=== PATIENT | female | born 1975 | race Caucasian/White ===

== ENCOUNTER 2021-09-11 06:43 | Day surgery (SDC) | payer OTHER ==
[~2021-09-11] VITALS: Ht 154.9 cm; Wt 103.1 kg
[~2021-09-11 06:43] MED LIST: SODIUM CHLORIDE 0.9% 1,000 ML ONE
[2021-09-11] MEDS ORDERED: BENZOCAINE 20% 50 MCG/SPRAY 57 GM TP ONE (06:44)
[2021-09-11] MEDS ORDERED: LIDOCAINE 2% 30 ML JELLY TP ONE (06:44)
[2021-09-11] MEDS ORDERED: ALBUTEROL SULFATE 2.5 MG/0.5 ML NEB SOLUTION NEB ONE (06:44)
[2021-09-11] MEDS ORDERED: SODIUM CHLORIDE 0.9% 1,000 ML IV ONE (07:00)
[2021-09-11 07:10] LABS: COVID AG,FIA SOURCE NASOPHARYNGEAL
[2021-09-11] MEDS ORDERED: FentaNYL CITRATE PF 100 MCG/2 ML VIAL ONE (07:48)
[2021-09-11] MEDS ORDERED: MIDAZOLAM HCL 2 MG/2 ML VIAL ONE (07:48)
[2021-09-11] MEDS ORDERED: MethylPREDNISolone SOD SUCC 125 MG/2 ML VIAL IVP ONE (09:30)
[2021-09-11] MEDS ORDERED: LORazepam 2 MG/ML VIAL ONE (09:46)
[2021-09-11] MEDS ORDERED: LORazepam 2 MG/ML VIAL IVP ONE (10:00)
[2021-09-11] MEDS ORDERED: OXYGEN THERAPY IH SCH (20:00)
== END 2021-09-11 10:10 | disposition still patient (30) ==
LOC: SURGERY 06:43
PROVIDERS: ATTEND Internal Medicine Critical Care Medicine
DX: R06.2 Wheezing (principal); Z53.8 Procedure and treatment not carried out for other reasons; I10 Essential (primary) hypertension; Z79.899 Other long term (current) drug therapy
CPT/HCPCS: 84703; 87426; 93005; C9803; J2060; J3010; J7030; J2250